=== PATIENT | male | born 1950 | race Hispanic/Latino ===

== ENCOUNTER 2017-03-16 13:39 | Observation (INO) | payer MEDICARE, OTHER ==
[2017-03-16 13:42] VITALS: BMI 29.9
[2017-03-16 14:07] LABS: BASO # 0.02 K/mm3 (0.0-2.0); BASO % 0.3 % (0.0-3.0); EOS # 0.1 (0.0-0.7); GRAN # 5.62 (1.4-6.5); GRAN % 71.4 % (50.0-68.0); HEMOGLOBIN 14.5 gm/dL (14.0-18.0); LYMPH # 1.4 (1.2-3.4); MEAN CORPUSCULAR HEMOGLOBIN 28.3 pg (25.0-35.0); MEAN CORPUSCULAR HGB CONC 32.9 g/dl (31.0-37.0); MONO # 0.7 (0.1-0.6); MONO % 9.3 % (1.0-6.0); PLATELET COUNT 227 10^3/uL (120.0-450.0); RBC 5.13 10^6/uL (3.5-6.1); RED CELL DISTRIBUTION WIDTH 15.8 % (11.5-14.5); VENOUS BLOOD GAS BASE EXCESS 3.7 mmol/L (0.0-2.0); VENOUS BLOOD GAS PO2 30 mm/Hg (30-55); VENOUS BLOOD PH 7.36 (7.32-7.43); WHITE BLOOD COUNT 7.9 10^3/ul (4.5-11.0)
[2017-03-16 14:18] LABS: ALB/GLOB RATIO 1.1 (1.1-1.8); ALBUMIN 4.3 g/dL (3.0-4.8); ALT/SGPT 33 U/L (7-56); AST/SGOT 21 U/L (15-59); BLOOD UREA NITROGEN 19 mg/dL (7-21); CALCIUM 9.3 mg/dL (8.4-10.5); GFR AFRICAN-AMERICAN > 60; GFR NON-AFRICAN AMERICAN 51; INR 1.85 (0.93-1.08); PARTIAL THROMBOPLASTIN TIME 31.5 Seconds (23.7-30.8)
[2017-03-16 14:30] LABS: TROPONIN I 0.02 ng/mL
[2017-03-16 14:55] LABS: B-TYPE NATRIURETIC PEPTIDE 10700 pg/mL (0-450)
--- NOTE | 2017-03-16 15:29 | ED PDOC ---
Arrival/HPI - General Chief Complaint: Chest Pain Time Seen by Provider: 03/16/17 13:43 Historian: Patient - History of Present Illness Narrative History of Present Illness (Text): 03/16/17 15:27 Patient is a 67 yo male, past medical hx of CAD, [place], with pacemaker/ defibrillator, presents to ED stating that last night when he went to bed he suddenly developed shortness of breath, with NO CHEST PAIN. Patient reportedly feels less short of breath when he sits up or stands up. He reports dyspnea with exertion. He states he "felt ok" before he went to bed last night but reports that he has been "congested" with hoarse voice and cough for 2-3 days. Denies chest pain or pleuritic discomfort. Denies dark or black stools. Denies calf pain or swelling. Past Medical History - Infectious Disease Hx of Infectious Diseases: None - Cardiac Hx Cardiac Arrhythmia: Yes (+pacemaker/defibrillator) Hx [place]: Yes Hx Hypertension: Yes - Psychiatric Hx Substance Use: No - Surgical History Hx Appendectomy: Yes Hx Cardiac Catheterization: Yes (with stents) Hx Coronary Stent: Yes Hx Tonsillectomy: Yes Other/Comment: Pacemaker/defibrillator]. quadruple bypass - Anesthesia Hx Anesthesia: Yes Hx Anesthesia Reactions: No Hx Malignant Hyperthermia: No Family/Social History Family/Social History: Unknown Family HX Smoking Status: Never Smoked Hx Alcohol Use: Yes Frequency of alcohol use: Socially Hx Substance Use: No Allergies/Home Meds Allergies/Adverse Reactions: Allergies No Known Allergies Allergy (Verified 03/16/17 13:42) Home Medications: Home Meds Medication Instructions Recorded Confirmed Amiodarone HCl [Pacerone] 200 mg PO DAILY 03/16/17 03/16/17 Furosemide [Lasix] 1 tab PO DAILY 03/16/17 03/16/17 Losartan [Cozaar] 1 tab PO DAILY 03/16/17 03/16/17 Metoprolol Tartrate [Lopressor] 1 tab PO DAILY 03/16/17 03/16/17 Potassium Chloride [Klor-Con 1 cap PO DAILY 03/16/17 03/16/17 Sprinkle] Rosuvastatin Calcium [Crestor] 40 mg PO HS 03/16/17 03/16/17 Warfarin [Coumadin] 6 mg PO DAILY 07/06/17 07/06/17 Review of Systems - Review of Systems Constitutional: Fatigue. absent: Fevers Eyes: absent: Vision Changes, Eye Pain ENT: Rhinorrhea, Sinus Congestion. absent: Hearing Changes Respiratory: SOB. absent: Cough, Sputum, Wheezing Cardiovascular: [place], Orthopnea. absent: Chest Pain, Palpitations, Edema, Calf Pain, Syncope Gastrointestinal: absent: Nausea, Vomiting Genitourinary Male: absent: Dysuria Musculoskeletal: absent: Back Pain Skin: absent: Pruritis Neurological: absent: Headache, Dizziness, Focal Weakness Endocrine: absent: Polyuria Hemo/Lymphatic: absent: Easy Bleeding Psychiatric: absent: Depression Physical Exam - Physical Exam Narrative Physical Exam (Text): Head: Atraumatic. Normocephalic. Eyes: PERRL. EOMI. Conjunctivae are not pale. ENT: Mucous membranes are moist and intact. Oropharynx is clear and symmetric. Hoarse voice. No drooling. No stridor. No pooling of secretions. No angioedema. Neck: Supple. Full ROM. Positive JVD. No lymphadenopathy. Cardiovascular: Regular rate. Regular rhythm. Systolic murmur. Distal pulses intact. Pulmonary/Chest: Mildly tachypneic with any exertion. No accessory muscle usage. No retractions. Rales at bases. Abdominal: Soft and non-distended. There is no tenderness. No rebound, guarding, or rigidity. No organomegaly. Good bowel sounds. Back: No CVA tenderness. Extremities: No edema. No cyanosis. No clubbing. Full range of motion in all extremities. No calf tenderness. Skin: Skin is warm and dry. No petechiae. No purpura. Neurological: Alert, awake. Motor and sensory exam intact with no meningeal signs. Psychiatric: Good eye contact. Normal interaction, affect, and behavior. Vital Signs Reviewed: Yes Vital Signs Temp Pulse Resp BP Pulse Ox 03/16/17 17:25 80 20 112/68 95 03/16/17 15:18 81 18 120/73 97 03/16/17 15:13 120/73 03/16/17 13:50 97.9 F 88 18 121/62 95 Temperature: Afebrile Respiratory Rate: Tachypneic Appearance: Positive for: Non-Toxic Pain Distress: Mild Mental Status: Positive for: Alert and Oriented X 3 Finger Stick Blood Glucose: 87 Medical Decision Making ED Course and Treatment: 03/16/17 22:58 Patient's history reviewed with family as well as PMD Dr. Michel. He has significant past cardiac history including prior [place], pacemaker/defibrillator. He reports "congestion" for several days. Afebrile. Chest xray consistent with CHF/pulmonary edema. Cannot exclude infiltrate but exam consistent with CHF. Lasix ordered. Patient denies any chest pain or discomfort over the past several days. I am highly suspicious that patient's symptoms are cardiac in nature. Initial troponin unremarkable, although discussed with patient high risks of cardiac disease given his past medical history. He remains comfortable with serial exams in ED, with NO chest pain and no respiratory distress noted. He was placed on nasal cannula oxygen with no respiratory distress noted. Dr. Magaña has been paged for consultation, consults discussed with Dr. Michel and patient. Patient updated with treatment plan, admitted to telemetry bed. - Lab Interpretations Lab Results: 03/16/17 13:50 03/16/17 13:50 Lab Results 03/16/17 14:27: POC Glucose (mg/dL) 87 03/16/17 13:50: PT 20.0 H, INR 1.85 H, APTT 31.5 H 03/16/17 13:50: WBC 7.9, RBC 5.13, Hgb 14.5, Hct 44.1, MCV 86.0, MCH 28.3, MCHC 32.9, RDW 15.8 H, Plt Count 227, MPV 10.0, Gran % 71.4 H, Lymph % (Auto) 18.0 L , [place] % (Auto) 9.3 H, Eos % (Auto) 1.0 L, Baso % (Auto) 0.3, Gran # 5.62, Lymph # 1.4, [place] # 0.7 H, Eos # 0.1, Baso # 0.02 03/16/17 13:50: Sodium 141, Chloride 103, Potassium 4.2, Carbon Dioxide 28, Anion Gap 14, BUN 19, Creatinine 1.4, Est GFR ( Amer) > 60, Est GFR (Non- Af Amer) 51, Random Glucose 98, Calcium 9.3, Total Bilirubin 1.8 H, AST 21, ALT 33, Alkaline Phosphatase 79, Lactate Dehydrogenase 545, Total Creatine Kinase 41 , Troponin I 0.02, NT-Pro-B Natriuret Pep 18150 H, Total Protein 8.3, Albumin 4.3, Globulin 4.0, Albumin/Globulin Ratio 1.1 03/16/17 13:50: pO2 30, VBG pH 7.36, VBG pCO2 54.0, VBG HCO3 30.5 H, VBG Total CO2 32.2 H, VBG O2 Sat (Calc) 62.1, VBG Base Excess 3.7 H, VBG Potassium 4.2, Sodium 139.0, Chloride 106.0, Glucose 100, Lactate 1.3, FiO2 21.0, Venous Blood Potassium 4.2 - RAD Interpretation Radiology Orders: 03/16/17 13:48 CHEST PORTABLE [RAD] Stat - Medication Orders Current Medication Orders: Albuterol/Ipratropium (Duoneb 3 Mg/0.5 Mg (3 Ml) Ud) 3 ml IH ONCE ONE Stop: 03/17/17 23:01 Amiodarone HCl (Cordarone) 200 mg PO DAILY [facility] Furosemide (Lasix) 40 mg IVP Q12 [facility] Heparin Sodium (Porcine) (Heparin) 5,000 units SC Q12 [facility] PRN Reason: Protocol Losartan Potassium (Cozaar) 100 mg PO DAILY [facility] Metoprolol Tartrate (Lopressor) 100 mg PO DAILY [facility] Non-Formulary Medication (Rosuvastatin Calcium [Crestor]) 40 mg PO HS [facility] Pantoprazole Sodium (Protonix Ec Tab) 40 mg PO 0600 [facility] Potassium Chloride (Klor-Con 10) 10 meq PO BRK [facility] Warfarin Sodium (Coumadin) 6 mg PO 1800 [facility] Discontinued Medications Furosemide (Lasix) 40 mg IVP ONCE ONE Stop: 03/16/17 15:08 Last Admin: 03/16/17 15:13 Dose: 40 mg Pneumococcal Polyvalent Vaccine (Pneumovax 23 Vaccine) 0.5 ml IM .ONCE ONE Stop: 03/16/17 19:18 Disposition/Present on Arrival - Present on Arrival Any Indicators Present on Arrival: No History of DVT/PE: No History of Uncontrolled Diabetes: No Urinary Catheter: No History of Decub. Ulcer: No History Surgical Site Infection Following: None - Disposition Have Diagnosis and Disposition been Completed?: Yes Diagnosis: Congestive heart failure Disposition: HOSPITALIZED Disposition Time: 14:50 Patient Plan: Admission, Telemetry Patient Problems: Current Active Problems Problem Status Onset Congestive heart failure Acute Condition: SERIOUS
[2017-03-16 15:54] LABS: PH,URINE 6.5 (4.7-8.0); URINE BILIRUBIN NEGATIVE (NEGATIVE); URINE BLOOD TRACE-LYSED (NEGATIVE); URINE GLUCOSE (UA) NEGATIVE (NEGATIVE); URINE LEUKOCYTE ESTERASE NEGATIVE Leu/uL (NEGATIVE); URINE NITRATE NEGATIVE (NEGATIVE); URINE PROTEIN NEGATIVE mg/dL (<30 mg/dL)
[2017-03-16 15:55] LABS: URINE APPEARANCE CLEAR (CLEAR); URINE COLOR LIGHT YELLOW (YELLOW)
[2017-03-16 16:00] LABS: URINE BACTERIA TRACE (NEG); URINE EPITHELIAL CELLS 0 - 2 /hpf (0-5); URINE RBC 0 - 2 /hpf (0-2); URINE WBC NEGATIVE /hpf (0-6)
[2017-03-16] MEDS ORDERED: Pneumococcal 23-Valent Vaccine IM ONE (19:17)
--- NOTE | 2017-03-16 21:42 | CP.PCM.HP ---
<Lowell Stearns - Last Filed: 03/16/17 21:12> History of Present Illness - History of Present Illness History of Present Illness: Internal Medicine H&P for Dr. Michel/Dr. Cormier service CC: Orthopnea, general malaise x2-3 days HPI: This is a 67 yo M with PMH of CAD, [place], CHF, CABG, s/p pacemaker/ defibrillator placement who presents with complaint of orthopnea last night and 2-3 days of general malaise consistent with prior colds/viral illnesses. As per patient, he began to feel unwell ~3 days prior, with a non-productive cough , sinus congestion, and general malaise. He gradually improved, but when lying down last night, began to feel increasingly short of breath, unrelieved with [id number] position changes, only relieved by sitting up. As per patient, he has not experienced the symptoms since last night, but notes that he is also increasingly dyspnic with exertion over the last 2 days. He then presented to the ED. Of note, the patient admits that he missed two days of his PO lasix ( March 13 & ), but has resumed it since. He adamantly denies chest pain, and also denies pain with respiration, increased work of breathing, dizziness/ lightheadedness, room spinning sensation, focal weakness, impaired gait, fevers/ chills, productive cough, diarrhea/constipation, dysuria/hematuria, nausea/ emesis, or melena/hemoptysis. All remaining ROS in 12 point ROS-review negative. PMH: as above PSH: Pacer placement, CABG SHx: former smoker (quit ~10 years prior, 1+ ppd for > 20 years), social EtOH ( denies binging episode within last 4 weeks), denies illicits/EtOH PMD: Dr. Michel Present on Admission - Present on Admission Any Indicators Present on Admission: No History of DVT/PE: No History of Uncontrolled Diabetes: No Review of Systems - Review of Systems All systems: reviewed and no additional remarkable complaints except (as stated in HPI) Past Patient History - Infectious Disease Hx of Infectious Diseases: None - Past Social History Smoking Status: Former Smoker - CARDIAC Hx Cardiac Disorders: Yes (mi 4 or 5, quadruple bypass) Hx Cardia Arrhythmia: Yes (+pacemaker/defibrillator) Hx Hypercholesterolemia: Yes Hx Hypertension: Yes Other/Comment: pt has had 2 prior pacemaker/defibrillator lates one implanted , pt had rheumatic fever and heart murmer age 7 and had first mi at age 26 , then age 35, then age 45, then age 55. - HEENT Hx HEENT Problems: Yes (eyeglasses) - MUSCULOSKELETAL/RHEUMATOLOGICAL Hx Back Pain: Yes (chronic back pain) Hx Falls: No Hx Herniated Disk: Yes (L4) - PSYCHIATRIC Hx Substance Use: No - SURGICAL HISTORY Hx Surgeries: Yes (tonsillectomy) Hx Appendectomy: Yes Hx Cardiac Catheterization: Yes (with stents) Hx Coronary Stent: Yes Other/Comment: Pacemaker/defibrillator]. quadruple bypass - ANESTHESIA Hx Anesthesia: Yes Hx Anesthesia Reactions: No Hx Malignant Hyperthermia: No Meds Allergies/Adverse Reactions: Allergies Allergy/AdvReac Type Severity Reaction Status Date / Time No Known Allergies Allergy Verified 03/16/17 13:42 Physical Exam - Constitutional Appears: Well, Non-toxic, No Acute Distress, Other (Resting comfortably in bed) - Head Exam Head Exam: ATRAUMATIC, NORMAL INSPECTION, NORMOCEPHALIC - Eye Exam Eye Exam: EOMI, Normal appearance. absent: Conjunctival injection, Scleral icterus Pupil Exam: absent: Irregular, Unequal - ENT Exam ENT Exam: Mucous Membranes Moist - Neck Exam Neck exam: Positive for: Normal Inspection - Respiratory Exam Respiratory Exam: Rales (faint rales at bilateral bases R>L), Wheezes (faint end -expiratory wheezes, most prominent at upper gonzales bilaterally), NORMAL BREATHING PATTERN. absent: Accessory Muscle Use, Chest Wall Tenderness, Decreased Breath Sounds, Prolonged Expiratory Phase, Rhonchi, Respiratory Distress, Stridor Additional comments: No tachypnea, satting well on 2L NC at time of exam, no prasanth cyanosis - Cardiovascular Exam Cardiovascular Exam: REGULAR RHYTHM, RRR, +S1, +S2. absent: Bradycardia, Tachycardia, Clicks, JVD, +S4 - GI/Abdominal Exam GI & Abdominal Exam: Normal Bowel Sounds, Soft. absent: Diminished Bowel Sounds , Distended, Firm, Hyperactive Bowel Sounds, Hypoactive Bowel Sounds, Rigid, Tenderness - Extremities Exam Extremities exam: Positive for: normal capillary refill, normal inspection, pedal pulses present. Negative for: calf tenderness, joint swelling, pedal edema, tenderness - Back Exam Back exam: NORMAL INSPECTION. absent: rash noted - Neurological Exam Neurological exam: Alert, Oriented x3 - Psychiatric Exam Psychiatric exam: Normal Affect, Normal Mood - Skin Skin Exam: Dry, Intact, Normal Color, Warm Results - Vital Signs Recent Vital Signs: Last Vital Signs Temp 97.9 F 03/16/17 19:00 Pulse 81 03/16/17 19:00 Resp 18 03/16/17 19:00 BP 120/73 03/16/17 19:00 Pulse Ox 95 03/16/17 17:25 - Labs Result Diagrams: 03/16/17 13:50 03/16/17 13:50 Labs: Laboratory Results - last 24 hr 03/16/17 15:34 Urine Color Light yellow Urine Appearance Clear Urine pH 6.5 Ur Specific [place] 1.010 Urine Protein Negative Urine Glucose (UA) Negative Urine Ketones Negative Urine Blood Trace-lysed H Urine Nitrate Negative Urine Bilirubin Negative Urine Urobilinogen 1.0 H Ur Leukocyte Esterase Negative Urine RBC 0 - 2 Urine WBC Negative Ur Epithelial Cells 0 - 2 Urine Bacteria Trace Assessment & Plan - Assessment and Plan (Free Text) Assessment: This is a 67 yo M with PMH of CAD, [place], CHF, CABG, s/p pacemaker/ defibrillator placement who presents with complaint of orthopnea last night and 2-3 days of general malaise consistent with prior colds/viral illnesses. He is being worked up and treated for acute exacerbation of CHF likely 2/2 medication non-compliance. Plan: 1) Progressive dyspnea with new onset orthopnea -Acute CHF exacerbation vs pneumonia vs ACS vs 2/2 arrhythmia -unlikely arrhythmia given pacer, EKG in ED notable for AV sequential/dual chamber paced rhythm, repeat EKG in AM -Trop 0.02, trending 2 more q8, will f/u -EKG and trop not suggestive of ACS, and lacks chest pain, so less likely ACS -Given non-compliance x2 days with home Lasix and elevated BNP (99289), much more likely Acute CHF exacerbation than pneumonia -Afebrile, no leukocytosis, but procal ordered to r/o pneumonia -Urine and blood cultures obtained, pending -Supplemental O2 as needed to maintain SaO2 > 92% -Mild wheezing on exam, may be secondary to smoking hx vs recent possible viral illness, Duonebs x1 and reassess in AM -Lasix 40mg IV x1 in ED, continue IV 40mg q12 as per Cardio -Continue home Metoprolol, Cozaar, Amiodarone, and Statin -Heart-healthy diet -No echo on file here, ordered, f/u -Cardio (Dr. Magaña) consulted, appreciate all recs; as per discussion with cardio , more likely 2/2 lasix non-compliance 2) Elevated total bilirubin -TBili 1.8 on admit, no prior admissions for comparison -Direct and total bili ordered for AM, f/u -LFTs otherwise unremarkable, no stomach pain, no jaundice on exam, no icterus -likely Gilbert vs Crigler-Marito vs Renetta-lupillo vs Rotor, f/u direct and total bili to differentiate -no acute intervention indicated at this time 3) Hx CABG on anticoagulation -anticoagulated on coumadin after CABG as per primary community arts worker (Dr. Argueta) as per patient -subtherapeutic INR at 1.85, continue home coumadin, f/u AM coags and adjust dosage as needed -Heparin SC for DVT/PE ppx until therapeutic with INR; if remains persistently sub-therapeutic on coumadin, will cover with Lovenox until bridged Dispo: Telemetry inpt, pending diuresis with IV Lasix, pending Echo, pending ACS r/o labs FEN: Heart-healthy Access: Peripheral IV Consults: Cardio Ppx: Protonix for GI, Heparin SC for DVT/PE until therapeutic on Coumadin Patient discussed and reviewed with attending, Dr. Cormier. Decision To Admit - Pt Status Changed To: Hospital Disposition Of: Inpatient Admission - Admit Certification Admit to Inpatient:: After my assessment, the patient will require hospitalization for at least two midnights. This is because of the severity of symptoms shown, intensity of services needed, and/or the medical risk in this patient being treated as an outpatient. - . Bed Request Type: Telemetry <Carlos Cormier - Last Filed: 04/03/17 16:46> Results - Vital Signs Recent Vital Signs: Last Vital Signs Temp 98 F 03/17/17 11:37 Pulse 99 H 03/17/17 11:37 Resp 18 03/17/17 11:37 BP 107/68 03/17/17 11:37 Pulse Ox 94 L 03/17/17 06:00 - Labs Result Diagrams: 03/17/17 05:30 03/17/17 05:30 Attending/Attestation - Attestation I have personally seen and examined this patient.: Yes I have fully participated in the care of the patient.: Yes I have reviewed all pertinent clinical information: Yes Notes (Text): 04/03/17 16:46 Medical record note made by the resident after discussion with my direction and input after the patient was personally seen and examined by me. I have reviewed the chart and agree that the record accurately reflects by personal performance of the history, physical exam, data review, and medical decision-making, in the course for the patient. I have also personally directed the plan of care.
[2017-03-17] MEDS ORDERED: Pantoprazole 40 mg EC Tab PO SCH (06:00)
[2017-03-17 06:17] VITALS: O2SAT 94
[2017-03-17 07:14] LABS: BASO # 0.01 K/mm3 (0.0-2.0); BASO % 0.1 % (0.0-3.0); EOS # 0.2 (0.0-0.7); EOS % 1.7 % (1.5-5.0); GRAN # 7.29 (1.4-6.5); GRAN % 81.2 % (50.0-68.0); HEMOGLOBIN 13.3 gm/dL (14.0-18.0); LYMPH # 0.8 (1.2-3.4); LYMPH % 9.2 % (22.0-35.0); MEAN CELL VOLUME 86.5 fL (80.0-105.0); MEAN CORPUSCULAR HEMOGLOBIN 27.3 pg (25.0-35.0); MEAN CORPUSCULAR HGB CONC 31.5 g/dl (31.0-37.0); MONO # 0.7 (0.1-0.6); MONO % 7.8 % (1.0-6.0); PLATELET COUNT 204 10^3/uL (120.0-450.0); RBC 4.88 10^6/uL (3.5-6.1)
[2017-03-17 07:17] LABS: INR 1.69 (0.93-1.08); PROTHROMBIN TIME 18.3 Seconds (9.9-11.8)
[2017-03-17 07:24] LABS: ALBUMIN 3.6 g/dL (3.0-4.8); ALT/SGPT 30 U/L (7-56); AST/SGOT 19 U/L (15-59); BILIRUBIN,DIRECT 0.4 mg/dL (0.0-0.4); BLOOD UREA NITROGEN 21 mg/dL (7-21); GFR AFRICAN-AMERICAN > 60; GFR NON-AFRICAN AMERICAN 51; HDL CHOLESTEROL 40 mg/dL (29-60); MAGNESIUM 1.9 mg/dL (1.7-2.2)
[2017-03-17 07:33] LABS: TROPONIN I 0.02 ng/mL
[2017-03-17 07:35] LABS: LDL CHOLESTEROL 84 mg/dL (0-129)
[2017-03-17 07:42] LABS: FREE T4 1.93 ng/dL (0.78-2.19); T4 8.3 ug/dL (5.5-11.0)
[2017-03-17] MEDS ORDERED: Potassium Chloride 10 mEq ER Tab PO SCH (08:00)
--- NOTE | 2017-03-17 08:16 | RAD ---
HISTORY: cough, sob COMPARISON: No prior. FINDINGS: LUNGS: Pulmonary vascular congestion is noted. No evidence of focal consolidation PLEURA: No significant pleural effusion identified, no pneumothorax apparent. CARDIOVASCULAR: Mild cardiomegaly is also noted. The patient status post sternotomy. There is a left-sided pacemaker/ defibrillator seen in place. OSSEOUS STRUCTURES: No significant abnormalities. VISUALIZED UPPER ABDOMEN: Normal. OTHER FINDINGS: None. IMPRESSION: Cardiomegaly and mild to moderate pulmonary vascular congestion. No evidence of significant pleural effusion in this portable exam.
[2017-03-17] MEDS ORDERED: Albuterol-Ipratrop 3 mg / 0.5 (3 ml) UD IH STA (08:19)
--- NOTE | 2017-03-17 09:45 | CP.PCM.PN ---
Subjective - Date & Time of Evaluation Date of Evaluation: 03/17/17 Time of Evaluation: 06:45 - Subjective Subjective: Laisha Cordoba D.O. PGY1 - Internal Medicine Progress Note - [place] Service Patient seen and examined at bedside. Patient was admitted last night for shortness of breath, presumed CHF exacerbation 2/2 medication noncompliance. He is complaining of wheezing. Currently he denies SOB, CP, weakness, H/A, vision changes, leg pain, fevers, or chills. Objective - Vital Signs/Intake and Output Vital Signs (last 24 hours): Temp Pulse Resp BP Pulse Ox 98.7 F 80 20 136/75 94 L 03/17/17 06:00 03/17/17 08:44 03/17/17 06:00 03/17/17 06:00 03/17/17 06:00 Intake and Output: 03/17/17 03/17/17 06:59 18:59 Intake Total 140 Output Total 800 Balance -660 - Medications Medications: Current Medications Albuterol/Ipratropium (Duoneb 3 Mg/0.5 Mg (3 Ml) Ud) 3 ml IH ONCE ONE Stop: 03/17/17 23:01 Amiodarone HCl (Cordarone) 200 mg PO DAILY [facility] Furosemide (Lasix) 40 mg IVP Q12 [facility] Last Admin: 03/16/17 23:11 Dose: Not Given Heparin Sodium (Porcine) (Heparin) 5,000 units SC Q12 [facility] PRN Reason: Protocol Last Admin: 03/16/17 23:10 Dose: 5,000 units Losartan Potassium (Cozaar) 100 mg PO DAILY [facility] Last Admin: 03/17/17 09:32 Dose: Not Given Metoprolol Tartrate (Lopressor) 100 mg PO DAILY [facility] Non-Formulary Medication (Rosuvastatin Calcium [Crestor]) 40 mg PO HS [facility] Last Admin: 03/16/17 22:00 Dose: Not Given Pantoprazole Sodium (Protonix Ec Tab) 40 mg PO 0600 [facility] Last Admin: 03/17/17 06:01 Dose: 40 mg Potassium Chloride (Klor-Con 10) 10 meq PO BRK [facility] Last Admin: 03/17/17 07:58 Dose: 10 meq Warfarin Sodium (Coumadin) 6 mg PO 1800 [facility] - Labs Labs: 03/17/17 05:30 03/17/17 05:30 PT 18.3 Seconds (9.9-11.8) H 03/17/17 05:30 INR 1.69 (0.93-1.08) H 03/17/17 05:30 APTT 31.0 Seconds (23.7-30.8) H 03/17/17 05:30 - Constitutional Appears: Well, Non-toxic, No Acute Distress - Head Exam Head Exam: ATRAUMATIC, NORMOCEPHALIC - Eye Exam Eye Exam: EOMI, Normal appearance - ENT Exam ENT Exam: Mucous Membranes Moist - Respiratory Exam Respiratory Exam: Wheezes (b/l anterior lung gonzales, mild), NORMAL BREATHING PATTERN. absent: Rales, Rhonchi - Cardiovascular Exam Cardiovascular Exam: RRR, +S1, +S2. absent: JVD - GI/Abdominal Exam GI & Abdominal Exam: Soft, Normal Bowel Sounds. absent: Tenderness - Extremities Exam Extremities Exam: Full ROM, Normal Inspection - Neurological Exam Neurological Exam: Alert, Awake, Oriented x3 - Psychiatric Exam Psychiatric exam: Normal Affect, Normal Mood - Skin Skin Exam: Dry, Intact, Normal Color Assessment and Plan - Assessment and Plan (Free Text) Assessment: 67 yo M with a PMH of CHF, [place], CABG, s/p pacemaker/defibrillator placement, and a remote smoking history, initially presented with orthopnea, presumed 2/2 to CHF exacerbation 2/2 medication noncompliance. He is also being monitors for elevated total bilirubin. Plan: 1) Progressive dyspnea with new onset orthopnea - 2/2 acute CHF exacerbation - Given non-compliance x2 days with home Lasix and elevated BNP ([id number]), most likely acute CHF exacerbation - Significant improvement of dyspnea after lasix and duonebs - Continue IV 40mg q12 as per Cardio - Continues to have mild wheezing on exam, subjectively improved after, Duonebs x1 yesterday, order Duonebs x1 again in addition to 40mg prednison PO x1 - EKG today was significant for........................... - Trop x3 persistently negative, unchanged since admission - Patient remains Afebrile, no leukocytosis, but procal pending to r/o pneumonia - Urine and blood cultures obtained, pending - Continue supplemental O2 as needed to maintain SaO2 > 92% - Continue home Metoprolol, Cozaar, Amiodarone, and Statin - Continue Heart-healthy diet - Echo ordered, pending - Cardio (Dr. 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 Argueta) as per patient - subtherapeutic INR at 1.85 yesterday, 1.69 today, likely secondary to iatrogenic cause due to multiple medications given vs unreported medication noncompliance - Will continue to monitor INR at this time. Recommend patient to f/u with alcoholic counselor or PCP for outpatient management - Continue Heparin SC for DVT/PE ppx complementary anticoagulation until therapeutic with INR
--- NOTE | 2017-03-17 10:14 | CARD ---
APPROVED REPORT EKG Measurement Heart [id number] CT 128P29 [id number] <Conclusion> AV pacing throughout.
[2017-03-17 11:40] VITALS: BP 107/68; PULSE 99; RESP 18; TEMP 98
[2017-03-17 13:19] LABS: HEPATITIS B SURFACE AG NEGATIVE (NEGATIVE)
[2017-03-17 13:24] LABS: HEPATITIS A IGM NEGATIVE (NEGATIVE)
[2017-03-17 13:25] LABS: HEPATITIS B CORE AB NEGATIVE (NEGATIVE)
--- NOTE | 2017-03-17 13:32 | CARD ---
APPROVED REPORT EKG Measurement Heart [id number] [place] 104P25 [id number] <Conclusion> 100 % AV Paced
[2017-03-17 13:36] LABS: HEPATITIS C ANTIBODY NEGATIVE (NEGATIVE)
--- NOTE | 2017-03-17 13:44 | CP.PCM.DIS ---
Addendum entered and electronically signed by Jace Valencia DO 03/20/17 06:56: Patient was seen and examined at bedside and case was discussed at length with Dr. Beryl Duran PGY-1. CHF exacerbation 2/2 medication non-compliance. Discussed at length with patient and both his mother and brother present at bedside. Patient verbalized understanding and agreement to maintain compliance. Will see back in the office. Jace Valencia D.O. PGY-2 Original Note: <LOUISA SUAZO - Last Filed: 03/17/17 14:14> Provider - Provider Date of Admission: 03/16/17 15:08 Attending physician: Jack Michel MD Primary care physician: Jack Michel MD Consults: Laura: Gómez Time Spent in preparation of Discharge (in minutes): 35 Diagnosis - Discharge Diagnosis (1) Congestive heart failure Status: Chronic Priority: High (2) Hx of CABG Status: Chronic Priority: High Hospital Course - Lab Results Lab Results: Most Recent Lab Values WBC 9.0 10^3/ul (4.5-11.0) 03/17/17 05:30 RBC 4.88 10^6/uL (3.5-6.1) 03/17/17 05:30 Hgb 13.3 gm/dL (14.0-18.0) L 03/17/17 05:30 Hct 42.2 % (42.0-52.0) 03/17/17 05:30 MCV 86.5 fL (80.0-105.0) 03/17/17 05:30 MCH 27.3 pg (25.0-35.0) 03/17/17 05:30 MCHC 31.5 g/dl (31.0-37.0) 03/17/17 05:30 RDW 16.0 % (11.5-14.5) H 03/17/17 05:30 Plt Count 204 10^3/uL (120.0-450.0) 03/17/17 05:30 MPV 10.0 fl (7.0-11.0) 03/17/17 05:30 Gran % 81.2 % (50.0-68.0) H 03/17/17 05:30 Lymph % (Auto) 9.2 % (22.0-35.0) L 03/17/17 05:30 [place] % (Auto) 7.8 % (1.0-6.0) H 03/17/17 05:30 Eos % (Auto) 1.7 % (1.5-5.0) 03/17/17 05:30 Baso % (Auto) 0.1 % (0.0-3.0) 03/17/17 05:30 Gran # 7.29 (1.4-6.5) H 03/17/17 05:30 Lymph # 0.8 (1.2-3.4) L 03/17/17 05:30 [place] # 0.7 (0.1-0.6) H 03/17/17 05:30 Eos # 0.2 (0.0-0.7) 03/17/17 05:30 Baso # 0.01 K/mm3 (0.0-2.0) 03/17/17 05:30 PT 18.3 Seconds (9.9-11.8) H 03/17/17 05:30 INR 1.69 (0.93-1.08) H 03/17/17 05:30 APTT 31.0 Seconds (23.7-30.8) H 03/17/17 05:30 pO2 30 mm/Hg (30-55) 03/16/17 13:50 VBG pH 7.36 (7.32-7.43) 03/16/17 13:50 VBG pCO2 54.0 (40-60) 03/16/17 13:50 VBG HCO3 30.5 mmol/l (21-28) H 03/16/17 13:50 VBG Total CO2 32.2 mmol.L (22-28) H 03/16/17 13:50 VBG O2 Sat (Calc) 62.1 % (40-65) 03/16/17 13:50 VBG Base Excess 3.7 mmol/L (0.0-2.0) H 03/16/17 13:50 VBG Potassium 4.2 mmol/L (3.6-5.2) 03/16/17 13:50 Sodium 139.0 mmol/L (132-148) 03/16/17 13:50 Chloride 106.0 mmol/L (98-107) 03/16/17 13:50 Glucose 100 mg/dl (75-110) 03/16/17 13:50 Lactate 1.3 mmol/L (0.7-2.1) 03/16/17 13:50 FiO2 21.0 % 03/16/17 13:50 Sodium 141 mmol/L (132-148) 03/17/17 05:30 Potassium 3.8 mmol/L (3.6-5.0) 03/17/17 05:30 Chloride 103 mmol/L (98-107) 03/17/17 05:30 Carbon Dioxide 28 mmol/L (21-33) 03/17/17 05:30 Anion Gap 14 (10-20) 03/17/17 05:30 BUN 21 mg/dL (7-21) 03/17/17 05:30 Creatinine 1.4 mg/dL (0.5-1.4) 03/17/17 05:30 Est GFR ( Amer) > 60 03/17/17 05:30 Est GFR (Non-Af Amer) 51 03/17/17 05:30 POC Glucose (mg/dL) 87 mg/dL (65-110) 03/16/17 14:27 Random Glucose 100 mg/dL (70-110) 03/17/17 05:30 Calcium 9.0 mg/dL (8.4-10.5) 03/17/17 05:30 Phosphorus 3.1 mg/dL (2.5-4.5) 03/17/17 05:30 Magnesium 1.9 mg/dL (1.7-2.2) 03/17/17 05:30 Total Bilirubin 1.3 mg/dL (0.2-1.3) 03/17/17 05:30 Direct Bilirubin 0.4 mg/dL (0.0-0.4) 03/17/17 05:30 AST 19 U/L (15-59) 03/17/17 05:30 ALT 30 U/L (7-56) 03/17/17 05:30 Alkaline Phosphatase 71 U/L (38-133) 03/17/17 05:30 Lactate Dehydrogenase 545 U/L (333-699) 03/16/17 13:50 Total Creatine Kinase 41 U/L (35-230) 03/16/17 13:50 Troponin I 0.02 ng/mL 03/17/17 05:30 NT-Pro-B Natriuret Pep 57773 pg/mL (0-450) H 03/16/17 13:50 Total Protein 7.1 g/dL (5.8-8.3) 03/17/17 05:30 Albumin 3.6 g/dL (3.0-4.8) 03/17/17 05:30 Globulin 3.5 gm/dL 03/17/17 05:30 Albumin/Globulin Ratio 1.0 (1.1-1.8) L 03/17/17 05:30 Triglycerides 102 mg/dL (35-160) 03/17/17 05:30 Cholesterol 141 mg/dL (130-200) 03/17/17 05:30 LDL Cholesterol Direct 84 mg/dL (0-129) 03/17/17 05:30 HDL Cholesterol 40 mg/dL (29-60) 03/17/17 05:30 Procalcitonin < 0.05 NG/ML (0.19-0.49) L 03/17/17 05:30 Free T4 1.93 ng/dL (0.78-2.19) 03/17/17 05:30 Thyroxine (T4) 8.3 ug/dL (5.5-11.0) 03/17/17 05:30 TSH 3rd Generation 4.08 mIU/mL (0.46-4.68) 03/17/17 05:30 Venous Blood Potassium 4.2 mmol/L (3.6-5.2) 03/16/17 13:50 Urine Color Light yellow (YELLOW) 03/16/17 15:34 Urine Appearance Clear (CLEAR) 03/16/17 15:34 Urine pH 6.5 (4.7-8.0) 03/16/17 15:34 Ur Specific [place] 1.010 (1.005-1.035) 03/16/17 15:34 Urine Protein Negative mg/dL (<30 mg/dL) 03/16/17 15:34 Urine Glucose (UA) Negative mg/dL (NEGATIVE) 03/16/17 15:34 Urine Ketones Negative mg/dL (NEGATIVE) 03/16/17 15:34 Urine Blood Trace-lysed (NEGATIVE) H 03/16/17 15:34 Urine Nitrate Negative (NEGATIVE) 03/16/17 15:34 Urine Bilirubin Negative (NEGATIVE) 03/16/17 15:34 Urine Urobilinogen 1.0 E.U./dL (<1 E.U./dL) H 03/16/17 15:34 Ur Leukocyte Esterase Negative Kimi/uL (NEGATIVE) 03/16/17 15:34 Urine RBC 0 - 2 /hpf (0-2) 03/16/17 15:34 Urine WBC Negative /hpf (0-6) 03/16/17 15:34 Ur Epithelial Cells 0 - 2 /hpf (0-5) 03/16/17 15:34 Urine Bacteria Trace (NEG) 03/16/17 15:34 Hepatitis A IgM Ab Negative (NEGATIVE) 03/17/17 05:30 Hep Bs Antigen Negative (NEGATIVE) 03/17/17 05:30 Hep B Core IgM Ab Negative (NEGATIVE) 03/17/17 05:30 - Hospital Course Hospital Course: 67 yo M with a PMH of CHF, CT, CABG, s/p pacemaker/defibrillator placement, and a remote smoking history, initially presented with orthopnea for the past night and malaise and sinus congestion for the past 2-3 days, and admitted to 2 days of missed lasix. He was admitted to the hospital for SOB presumed 2/2 to CHF exacerbation 2/2 medication noncompliance. He was also being monitored for elevated total bilirubin. Upon admission, he was started on IV lasix 40mg Q12H and was given one dose of Duoneb, and workup for pneumonia and CAD were started. By the next morning - today - his shortness of breath was totally resolved, but he was still complaining of slight wheezing. During his hospitalization, he was also subtherapeutic on coumadin, and was given complementary anticoagulation with heparin. Today, repeat EKG showed no changes from previous EKG, repeat troponins were negative, procalcitonin was negative, blood culture showed no growth after 24 hours, he remained afebrile with no leukocytosis. He denies any CP, SOB, FATIMA, fever, chills, focal weakness or numbness. Wheezing was present on exam, for which he will be discharged with steroids. Today his bilirubin was also improved , likely Gilbert syndrome. Yesterday he had subtherapeutic INR at 1.85, and 1.69 today, likely secondary to iatrogenic cause due to multiple medications given vs unreported medication noncompliance. He should f/u with strap machine operator or PCP for outpatient management. Patient was reviewed and discussed with senior resident Dr. Valencia PGY2 and attending Dr. Cormier. Discharge Exam - Head Exam Head Exam: ATRAUMATIC, NORMOCEPHALIC - Eye Exam Eye Exam: EOMI, Normal appearance - ENT Exam ENT Exam: Mucous Membranes Moist - Respiratory Exam Respiratory Exam: Clear to PA & Lateral, Wheezes, NORMAL BREATHING PATTERN. absent: Rales, Rhonchi - Cardiovascular Exam Cardiovascular Exam: RRR, +S1, +S2 - GI/Abdominal Exam GI & Abdominal Exam: Normal Bowel Sounds. absent: Tenderness - Extremities Exam Extremities exam: normal inspection - Neurological Exam Neurological exam: Alert, Oriented x3 - Psychiatric Exam Psychiatric exam: Normal Affect, Normal Mood - Skin Skin Exam: Dry, Intact, Normal Color Discharge Plan - Discharge Medications Prescriptions: Methylprednisolone [Medrol Dose Pack (21 tabs)] See Taper PO DAILY #21 mg - Follow Up Plan Condition: SERIOUS Disposition: HOME/ ROUTINE Patient education suggested?: Yes Instructions: Methylprednisolone (By mouth), Heart Failure (DC), Heart Failure (GEN), Pacemaker (DC), Pacemaker (GEN), Pulmonary Edema (DC), Pulmonary Edema ( GEN), Heart Healthy Diet (GEN), Weight Management (GEN), Cholesterol and Your Health (GEN), Vitamin K in Foods (GEN), Ascites (DC), Ascites (GEN) Additional Instructions: 1. Take all home medications as prescribed, do not skip any doses 2. Take medrol dose pack as prescribed for wheezing 3. Recommend follow up with PCP next 4. If any new or worsening symptoms or concerns occur, contact PCP immediately or return to the ED. Weigh daily: if weight gain of 2 lbs or more, shortness of breath and/or swelling/edema - call PCP. Referrals: Jack Michel MD [Primary Care Provider] - <Jack Michel - Last Filed: 03/28/17 10:11> Provider - Provider Date of Admission: 03/16/17 15:08 Attending physician: Jack Michel MD Primary care physician: Jack Michel MD Hospital Course - Lab Results Lab Results: Micro Results 03/16/17 15:34 Urine Urine Culture - Final No Growth (<1,000 CFU/ML) Most Recent Lab Values WBC 9.0 10^3/ul (4.5-11.0) 07/07/17 05:30 RBC 4.88 10^6/uL (3.5-6.1) 03/17/17 05:30 Hgb 13.3 gm/dL (14.0-18.0) L 03/17/17 05:30 Hct 42.2 % (42.0-52.0) 03/17/17 05:30 MCV 86.5 fL (80.0-105.0) 03/17/17 05:30 MCH 27.3 pg (25.0-35.0) 03/17/17 05:30 MCHC 31.5 g/dl (31.0-37.0) 03/17/17 05:30 RDW 16.0 % (11.5-14.5) H 03/17/17 05:30 Plt Count 204 10^3/uL (120.0-450.0) 03/17/17 05:30 MPV 10.0 fl (7.0-11.0) 03/17/17 05:30 Gran % 81.2 % (50.0-68.0) H 03/17/17 05:30 Lymph % (Auto) 9.2 % (22.0-35.0) L 03/17/17 05:30 [place] % (Auto) 7.8 % (1.0-6.0) H 03/17/17 05:30 Eos % (Auto) 1.7 % (1.5-5.0) 03/17/17 05:30 Baso % (Auto) 0.1 % (0.0-3.0) 03/17/17 05:30 Gran # 7.29 (1.4-6.5) H 03/17/17 05:30 Lymph # 0.8 (1.2-3.4) L 03/17/17 05:30 [place] # 0.7 (0.1-0.6) H 03/17/17 05:30 Eos # 0.2 (0.0-0.7) 03/17/17 05:30 Baso # 0.01 K/mm3 (0.0-2.0) 03/17/17 05:30 PT 18.3 Seconds (9.9-11.8) H 03/17/17 05:30 INR 1.69 (0.93-1.08) H 03/17/17 05:30 APTT 31.0 Seconds (23.7-30.8) H 03/17/17 05:30 pO2 30 mm/Hg (30-55) 03/16/17 13:50 VBG pH 7.36 (7.32-7.43) 03/16/17 13:50 VBG pCO2 54.0 (40-60) 03/16/17 13:50 VBG HCO3 30.5 mmol/l (21-28) H 03/16/17 13:50 VBG Total CO2 32.2 mmol.L (22-28) H 03/16/17 13:50 VBG O2 Sat (Calc) 62.1 % (40-65) 03/16/17 13:50 VBG Base Excess 3.7 mmol/L (0.0-2.0) H 03/16/17 13:50 VBG Potassium 4.2 mmol/L (3.6-5.2) 03/16/17 13:50 Sodium 139.0 mmol/L (132-148) 03/16/17 13:50 Chloride 106.0 mmol/L (98-107) 03/16/17 13:50 Glucose 100 mg/dl (75-110) 03/16/17 13:50 Lactate 1.3 mmol/L (0.7-2.1) 03/16/17 13:50 FiO2 21.0 % 03/16/17 13:50 Sodium 141 mmol/L (132-148) 03/17/17 05:30 Potassium 3.8 mmol/L (3.6-5.0) 03/17/17 05:30 Chloride 103 mmol/L (98-107) 03/17/17 05:30 Carbon Dioxide 28 mmol/L (21-33) 03/17/17 05:30 Anion Gap 14 (10-20) 03/17/17 05:30 BUN 21 mg/dL (7-21) 03/17/17 05:30 Creatinine 1.4 mg/dL (0.5-1.4) 03/17/17 05:30 Est GFR ( Amer) > 60 03/17/17 05:30 Est GFR (Non-Af Amer) 51 03/17/17 05:30 POC Glucose (mg/dL) 87 mg/dL (65-110) 03/16/17 14:27 Random Glucose 100 mg/dL (70-110) 03/17/17 05:30 Calcium 9.0 mg/dL (8.4-10.5) 03/17/17 05:30 Phosphorus 3.1 mg/dL (2.5-4.5) 03/17/17 05:30 Magnesium 1.9 mg/dL (1.7-2.2) 03/17/17 05:30 Total Bilirubin 1.3 mg/dL (0.2-1.3) 03/17/17 05:30 Direct Bilirubin 0.4 mg/dL (0.0-0.4) 03/17/17 05:30 AST 19 U/L (15-59) 03/17/17 05:30 ALT 30 U/L (7-56) 03/17/17 05:30 Alkaline Phosphatase 71 U/L (38-133) 03/17/17 05:30 Lactate Dehydrogenase 545 U/L (333-699) 03/16/17 13:50 Total Creatine Kinase 41 U/L (35-230) 03/16/17 13:50 Troponin I 0.02 ng/mL 03/17/17 05:30 NT-Pro-B Natriuret Pep 29137 pg/mL (0-450) H 03/16/17 13:50 Total Protein 7.1 g/dL (5.8-8.3) 03/17/17 05:30 Albumin 3.6 g/dL (3.0-4.8) 03/17/17 05:30 Globulin 3.5 gm/dL 03/17/17 05:30 Albumin/Globulin Ratio 1.0 (1.1-1.8) L 03/17/17 05:30 Triglycerides 102 mg/dL (35-160) 03/17/17 05:30 Cholesterol 141 mg/dL (130-200) 03/17/17 05:30 LDL Cholesterol Direct 84 mg/dL (0-129) 03/17/17 05:30 HDL Cholesterol 40 mg/dL (29-60) 03/17/17 05:30 Procalcitonin < 0.05 NG/ML (0.19-0.49) L 03/17/17 05:30 Free T4 1.93 ng/dL (0.78-2.19) 03/17/17 05:30 Thyroxine (T4) 8.3 ug/dL (5.5-11.0) 03/17/17 05:30 TSH 3rd Generation 4.08 mIU/mL (0.46-4.68) 03/17/17 05:30 Venous Blood Potassium 4.2 mmol/L (3.6-5.2) 03/16/17 13:50 Urine Color Light yellow (YELLOW) 03/16/17 15:34 Urine Appearance Clear (CLEAR) 03/16/17 15:34 Urine pH 6.5 (4.7-8.0) 03/16/17 15:34 Ur Specific [place] 1.010 (1.005-1.035) 03/16/17 15:34 Urine Protein Negative mg/dL (<30 mg/dL) 03/16/17 15:34 Urine Glucose (UA) Negative mg/dL (NEGATIVE) 03/16/17 15:34 Urine Ketones Negative mg/dL (NEGATIVE) 03/16/17 15:34 Urine Blood Trace-lysed (NEGATIVE) H 03/16/17 15:34 Urine Nitrate Negative (NEGATIVE) 03/16/17 15:34 Urine Bilirubin Negative (NEGATIVE) 03/16/17 15:34 Urine Urobilinogen 1.0 E.U./dL (<1 E.U./dL) H 03/16/17 15:34 Ur Leukocyte Esterase Negative Kimi/uL (NEGATIVE) 03/16/17 15:34 Urine RBC 0 - 2 /hpf (0-2) 03/16/17 15:34 Urine WBC Negative /hpf (0-6) 03/16/17 15:34 Ur Epithelial Cells 0 - 2 /hpf (0-5) 03/16/17 15:34 Urine Bacteria Trace (NEG) 03/16/17 15:34 Hepatitis A IgM Ab Negative (NEGATIVE) 03/17/17 05:30 Hep Bs Antigen Negative (NEGATIVE) 03/17/17 05:30 Hep B Core IgM Ab Negative (NEGATIVE) 03/17/17 05:30 Hepatitis C Antibody Negative (NEGATIVE) 03/17/17 05:30 Attending/Attestation - Attestation I have personally seen and examined this patient.: Yes I have fully participated in the care of the patient.: Yes I have reviewed all pertinent clinical information, including history, physical exam and plan: Yes Notes (Text): 03/28/17 10:11 Medical record note made by resident after discussion with my direction and input after the patient personally seen and examined by me. I have reviewed the chart and agree that the note represents my personal history, physical, data review and plan.
[2017-03-17] MEDS ORDERED: Albuterol-Ipratrop 3 mg / 0.5 (3 ml) UD IH ONE (23:00)
--- NOTE | 2017-03-28 13:37 | CP.PCM.CON ---
History of Present Illness - History of Present Illness History of Present Illness: Patient is a 67 year old male who presented with shortness of breath, consistent with CHF. Patient's past medical history is notable for marked ischemic dilated cardiomyopathy. He has been worked up thoroughly at [facility] and has had a informatics scientist here for a while. The patient was noncompliant with his Lasix after going to a constitution party and developed shortness of breath the following day. The patient is status post acute myocardial infarction and has had multiple infarcts in the past. He has undergone revascularization, as well as had an ICD placed, ICD revision, and a recent ICD check. He suffers from hypercholesterolemia. He is also being treated with Amiodarone. Review of Systems - Review of Systems Review of Systems: 14 point review system was reviewed. - Cardiovascular Cardiovascular: absent: Chest Pain, Edema - Respiratory Additional comments: SOB markedly improved after Lasix Past Patient History - Infectious Disease Hx of Infectious Diseases: None - Past Social History Smoking Status: Former Smoker - CARDIAC Hx Cardiac Disorders: Yes (mi 4 or 5, quadruple bypass) Hx Hypercholesterolemia: Yes Hx Hypertension: Yes - HEENT Hx HEENT Problems: Yes (eyeglasses) - MUSCULOSKELETAL/RHEUMATOLOGICAL Hx Back Pain: Yes (chronic back pain) Hx Falls: No Hx Herniated Disk: Yes (L4) - PSYCHIATRIC Hx Substance Use: No - SURGICAL HISTORY Hx Surgeries: Yes (tonsillectomy) Hx Appendectomy: Yes Hx Cardiac Catheterization: Yes (with stents) Hx Coronary Stent: Yes Other/Comment: Pacemaker/defibrillator]. quadruple bypass - ANESTHESIA Hx Anesthesia: Yes Hx Anesthesia Reactions: No Hx Malignant Hyperthermia: No Meds Home Medications: Home Medication List Medication Instructions Recorded Confirmed Type Methylprednisolone [Medrol Dose See Taper PO DAILY #21 mg 03/17/17 Rx Pack (21 tabs)] Allergies/Adverse Reactions: Allergies Allergy/AdvReac Type Severity Reaction Status Date / Time No Known Allergies Allergy Verified 03/16/17 13:42 Physical Exam - Neck Exam Additional comments: Negative JVD - Respiratory Exam Respiratory Exam: Clear to Auscultation Bilateral - Cardiovascular Exam Cardiovascular Exam: +S1, +S2 Additional comments: Paced Rhythm Results - Vital Signs Recent Vital Signs: Last Vital Signs Temp 98 F 03/17/17 11:37 Pulse 99 H 03/17/17 11:37 Resp 18 03/17/17 11:37 BP 107/68 03/17/17 11:37 Pulse Ox 94 L 03/17/17 06:00 - Labs Result Diagrams: 03/17/17 05:30 03/17/17 05:30 Labs: 1. Hemoglobin: 13.3 2. Troponin: negative x 3 3. ProBNP: 74852 (yesterday) 4. Potassium: 3.8 5. 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 I've discussed with him about his need to continue his Lasix and be compliant with medications. He will follow up with his private informatics scientist in [facility]. - Date & Time Date: 03/17/17
== END 2017-03-17 14:12 | disposition home or self-care (01) ==
LOC: ED 13:39 → INTOOBSV 15:08 → ERH 15:08 → 2RSO 17:47
PROVIDERS: ADMIT Internal Medicine; ATTEND Internal Medicine
DX: I11.0 Hypertensive heart disease with heart failure (principal); I50.9 Heart failure, unspecified; Z91.14 Patient's other noncompliance with medication regimen; I25.10 Atherosclerotic heart disease of native coronary artery without angina pectoris; I25.2 Old myocardial infarction; Z79.01 Long term (current) use of anticoagulants; Z95.810 Presence of automatic (implantable) cardiac defibrillator; Z95.1 Presence of aortocoronary bypass graft; Z87.891 Personal history of nicotine dependence
CPT/HCPCS: 36415; 71010; 80053; 80061; 80074; 81001; 82248; 82550; 82803; 82948; 83615; 83735; 83880; 84100; 84145; 84439; 84443; 84481; 84484; 85025; 85610; 85730; 87040; 87086; 93005; 96372; 96374; 96376; 97161; 99285; G0378; G8978; G8979; G8980; J1644; J1940